=== PATIENT | female | born 1995 | race Caucasian/White ===

== ENCOUNTER 2018-08-06 19:07 | Emergency (ER) | payer OTHER ==
[2018-08-06 19:50] VITALS: BP 109/70
--- NOTE | 2018-08-06 20:16 | UC ---
Abdominal Pain Female HPI - HPI Summary HPI Summary: 23 y/o female presents to the urgent care c/o lower abdominal pain for the past the past 3 weeks. Pain has worsen in the past 2 days an localized on the pelvic area radiating to the RLQ. Pt reports she was seen at the [place] ER about 3 3 weeks of intermittent lower abd cramping. Went to [facility] ER 1 week ago; U/A and urine preg negative, told to follow up w/ PCP. Arroyo dizzy and nauseous today, also states lower abd pain worse today. No fever/chills. Tried midol and ibuprofen w/ no pain relief. - History of Current Complaint Chief Complaint: UCGI Stated Complaint: CRAMPING LOWER ABDOMINAL Time Seen by Provider: 08/06/18 20:15 Hx Obtained From: Patient Hx Last Menstrual Period: 08/04/18 ?: No Onset/Duration: Gradual Onset, Lasting Weeks - 3 weeks, Still Present, Worse Since - yesterday Timing: Constant Severity Initially: Mild Severity Currently: Moderate Pain Intensity: 8 Pain Scale Used: 0-10 Numeric Location: Other - pelvic pain Radiates: Yes Radiates to: RLQ Character: Cramping Alleviating Factor(s): OTC Analgesics - midol Associated Signs and Symptoms: Positive: Dizzy - at times, Vaginal Discharge - mild, Nausea. Negative: Fever, Vaginal Bleeding, Vomiting, Diarrhea Allergies/Adverse Reactions: Allergies Allergy/AdvReac Type Severity Reaction Status Date / Time No Known Allergies Allergy Verified 08/06/18 19:39 Home Medications: Home Medications Escitalopram Oxalate [Lexapro 10 mg] 1 tab QAM 08/06/18 [History Confirmed 08/06] PMH/Surg Hx/FS Hx/Imm Hx Previously Healthy: Yes - Pt denies PMHX - Surgical History Surgical History: None - Family History Known Family History: Positive: Cardiac Disease, Hypertension, Diabetes - Social History Occupation: Employed Full-time, Student Lives: With Family Alcohol Use: Occasionally Substance Use Type: None Smoking Status (MU): Light Every Day Tobacco Smoker Type: Cigarettes Amount Used/How Often: 1/2 PPD Review of Systems Constitutional: Negative Skin: Negative Eyes: Negative ENT: Negative Respiratory: Negative Cardiovascular: Negative Gastrointestinal: Nausea Genitourinary: Vaginal/Penile Discharge - mild, Other - pelvic pain radiating to the RLQ Motor: Negative Neurovascular: Negative Musculoskeletal: Negative Neurological: Negative Psychological: Negative Is Patient Immunocompromised?: No All Other Systems Reviewed And Are Negative: Yes Physical Exam - Summary Physical Exam Summary: Vital signs: reviewed General: well developed, well nourished female adolescent sitting in the examining table w/o any acute distress. Head: Normocephalic, no lesions. Eyes: PERRLA, EOM's full, conjunctiva clear, fundi grossly normal. Ears: EAC's clear, TM's normal. Nose: Mucosa normal, no obstruction. Throat: Clear, no exudates, no lesions. Neck: Supple, no masses, no thyromegaly, no bruits. Chest: Lungs clear, no rales, no rhonchi, no wheezes. Heart: RR, no murmurs, no rubs, no gallops. Abdomen: Soft, no tenderness, no masses, BS normal. Pelvic: External genitalia within normal limits. There is no lesions there is no masses noted. Speculum exam: The vaginal burton are within normal limits w/ normal clear vaginal discharge, no the lesions or rashes. The cervix is closed with no lesions or masses. There is no CMT's, and no adnexal masses. Sample sent to Lab for G/C and Affirm panel. Rectal: No lesions, no hemorrhoids, Back: Normal curvature, no tenderness. Extremities: FROM, no deformities, no edema, no erythema. Neuro: Physiological, no localizing findings. Skin: Normal, no rashes, no lesions noted. Triage Information Reviewed: Yes Vital Signs: Initial Vital Signs Temp 99 F 08/06/18 19:40 Pulse 74 08/06/18 19:40 Resp 16 08/06/18 19:40 BP 109/70 08/06/18 19:40 Pulse Ox 100 08/06/18 19:40 Abd Pain Female Course/Dx - Differential Dx/Diagnosis Differential Diagnosis: Appendicitis, Ovarian Cyst, Pelvic Inflammatory Disease , , Renal Colic, Urinary Tract Infection, Other - cervicitis Provider Diagnoses: 1- Acute pelvic pain. 2- Discharge - Sign-Out/Discharge Documenting (check all that apply): Patient Departure - Pt highly recommended to go to the [place] ER for further management on her pelvic pain. Pt offer ambulance transfer and she declines and stated her mother will pick her up. Pt explaine neris of not taking ER trnasfer. All imaging exams completed and their final reports reviewed: No Studies - Discharge Plan Condition: Stable Disposition: HOME-RECOMMEND TO ED Patient Education Materials: Pelvic Pain in Women (ED) Referrals: Avelina Zarco PA [Primary Care Provider] - Additional Instructions: I think you need a higher level or care for your presenting symptoms. I highly recommend you to go to the ER for further evaluation and treatment on your pelvic . The risks of not going can be , ovarian torsion or cyst, PID, appendicitis etc. I spoke to the ER attending MICHELLE Eddy. They are expecting you. - Billing Disposition and Condition Condition: STABLE Disposition: Home-Recommend to ED
== END 2018-08-06 21:18 | disposition home health service (06) ==
LOC: UCCORT 19:07
DX: R10.2 Pelvic and perineal pain (principal); F17.210 Nicotine dependence, cigarettes, uncomplicated
CPT/HCPCS: 81003; 84702; 99202; G0463

== ENCOUNTER 2018-12-26 20:38 | Emergency (ER) | payer MEDICAID, OTHER ==
--- OUTSIDE RECORDS SUMMARY | 2018-12-26 20:54 | XMS REPORT | Continuity of Care Document ---
:1995 External Reference #:[id number] Author Name Ariadne Patiño NP Address [address] [place] [id number] Care Team Providers Name Role Phone No Primary Care Physician Unavailable Payers Date Identification Numbers Payment Provider Subscriber Effective: 2018 Policy Number: [id number] [facility] [employer] [employer] Group Name: [employer] [address] PayID: [id number] [place] [address] Effective: 2018 Policy Number: [id number] Medicaid -Allen Vallejo PayID: [id number] [address] [place] [address] Effective: 2015 Policy Number: [id number] Medicaid -Allen Vallejo Expires: 2017 PayID: [id number] [address] [place] [id number] Advance Directives Description No Information Available Problems Description No Active Problems Family History Date Family Member(s) Observation Comments Father No Current Problems Father Alive Mother No Current Problems Mother Alive Social History Type Date Description Comments Sex Female Education Highest level completed, 12th grade Marital Status Legal Status: Never Tobacco Use Reviewed: Never Smoked Cigars 11/23/18 Smoking Status Reviewed: Never Smoked Cigars 11/23/18 Tobacco Use Reviewed: Never Smoked A Pipe 11/23/18 Tobacco Use Start: Unknown Never Used Smokeless Tobacco ETOH Use Occasionally consumes alcohol Recreational Drug Use Teaching provided regarding Naloxone/Narcan Training Available At [facility] Tobacco Use Start: Unknown Patient is a former states stopped smoking End: Unknown smoker aprox. 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 treatment Azithromycin 11/25 Active Tablets 500mg 2tabs take 2 tablets by Haroon mouth once WEIGHT LOSS PHYSICIAN Depo-Provera 11/23 Active Suspension 150mg/ml 1ml 1 Z30.013 intramuscular Haroon, injection WEIGHT LOSS PHYSICIAN every 12 weeks until annual exam Azo Cranberry Active Unknown / Ortho 01/19 Hx Tablets 0.18/0.21 84tab 1 by mouth Z30.011 Ariadne Tri-Cyclen 5/0.25 s every day Haroon, - mg-25 mcg WEIGHT LOSS PHYSICIAN 11/23 Depo-Provera 10/28 Hx Suspension 150mg/ml 1ml intramuscular Z30.42 In every 12 Oh, MD - weeks til 11/23 next Depo-Provera 04/06 Hx Suspension 150mg/ml 1ml intramuscular In every 12 Oh, MD - weeks til 01/19 next Depo-Provera 04/01 Hx Suspension 150mg/ml 1ml intramuscular In every 12 Oh, MD - weeks til 01/19 next Depo-Provera 04/09 Hx Suspension 150mg/ml 1ml intramuscular Z30.42 In every 12 Oh, MD - weeks til 01/19 next Zoloft 01/15 Hx Concentrate 20mg/ml In OhMD - 10/28 Oral 01/15 Hx In Contr Oh, - 07/08 Econtra Ez 01/15 Hx Tablets 1.5mg 1tabs Take 1 pill Z30.012 In po now Oh, - 07/08 Medications Administered in Office Medication Date Status Form Strength Qnty SIG Indications Ordering Provider Zithromax 12/03 Administered Tablets 500mg 2tabs two tabs A56.02 by mouth Haroon, x 1 WEIGHT LOSS PHYSICIAN Plan B 2tabs Administered Tablets 1.5mg 1tabs 1 tab by In [facility] One-Step 02/08 mouth now MD Kannan Depo-Provera 1tabs Administered Suspension 150mg/ml 1ml 1 Ariadne M 01/02 intramusc Haroon, didier WEIGHT LOSS PHYSICIAN injection every 12 weeks until annual exam Depo-Provera 1ml12 Administered Suspension 150mg/ml 1ml intramusc In [facility] didier Brunner MD 016 every 12 weeks til next annual Depo-Provera 1ml09 Administered Suspension 150mg/ml 1ml 1 Z30.42 Ariadne intramusc Haroon 016 didier WEIGHT LOSS PHYSICIAN injection every 12 weeks until annual exam J-Depo Provera 1ml02 Administered Injection Ariadne M Injection /02/17 Josemanuel Patiño NP Emergency 02/08 Administered Injection Dinah Contraceptive /2017 Joel Contraceptive 01/19 Administered Injection Ariadne M Pills /2017 Damion Patiño NP J-Depo Provera 10/28 Administered Injection Mariann Injection /2017 KIRSTEN Hurley J-Depo Provera 07/03 Administered Injection Ariadne M Injection /2016 KIRSTEN Patiño J-Depo Provera 04/01 Administered Injection Dinah Injection /2016 Joel J-Depo Provera 01/02 Administered Injection Dinah Injection /2016 Joel J-Depo Provera 10/06 Administered Injection Dinah Injection /2015 Joel J-Depo Provera 07/08 Administered Injection Ariadne M Injection /2015 KIRSTEN Patiño J-Depo Provera 04/09 Administered Injection Mariann Injection /2015 KIRSTEN Hurley Emergency 01/15 Administered Injection Buddy, Contraceptive PALAK Brandt Emergency 01/29 Administered Injection Buddy, Contraceptive PALAK Brandt Emergency 10/23 Administered Injection Dinah Contraceptive /2014 Joel Immunizations Description No Information Available Vital Signs Date Vital Result Comment 12/03/2018 1:17pm BP Systolic 102 mmHg BP Diastolic 86 mmHg 11/23/2018 9:29am BP Systolic 97 mmHg BP Diastolic 62 mmHg Height 65 inches 5'5" Weight 122.00 lb BMI (Body Mass Index) 20.3 kg/m2 02/08/2018 4:16pm BP Systolic 118 mmHg BP Diastolic 70 mmHg 01/19/2018 9:51am BP Systolic 102 mmHg BP Diastolic 56 mmHg Height 65 inches 5'5" Weight 123.00 lb BMI (Body Mass Index) 20.5 kg/m2 10/28/2017 11:09am BP Systolic 117 mmHg BP Diastolic 70 mmHg Height 65 inches 5'5" Weight 118.00 lb BMI (Body Mass Index) 19.6 kg/m2 07/03/2017 2:00pm BP Systolic 110 mmHg BP Diastolic 70 mmHg Height 65 inches 5'5" Weight 115.00 lb BMI (Body Mass Index) 19.1 kg/m2 04/01/2017 1:39pm BP Systolic 114 mmHg BP Diastolic 68 mmHg Weight 120.00 lb 01/02/2017 10:31am BP Systolic 118 mmHg BP Diastolic 74 mmHg Weight 118.00 lb 10/06/2016 1:22pm BP Systolic 114 mmHg BP Diastolic 70 mmHg Weight 125.00 lb 07/08/2016 3:10pm BP Systolic 104 mmHg BP Diastolic 64 mmHg Weight 125.00 lb 04/09/2016 8:37am BP Systolic 90 mmHg BP Diastolic 64 mmHg Height 65 inches 5'5" Weight 118.00 lb BMI (Body Mass Index) 19.6 kg/m2 Last Menstrual Period [id number] Results Test Date Facility Test Result H/L Range Note Laboratory test [facility] Test negative finding 9 Urine..... Chlamydia/N [facility] CT,Rna,Tma,Uro DETECTED Abnormal Not Detected 1 Gonorroeae Rna 9 genital Tma Urogenit GC Rna,Tma,Urogen NOT DETECTED Not Detected 2 Laboratory test finding 11/23/2018 [facility] Test Urine..... negative Laboratory test finding 01/19/2018 [facility] HIV Rapid... non-reactive Hep C Rapid Test non-reactive Chlam 01/19/2018 [facility] C.Trachomatis NOT DETECTED Not Detected 3 Trach/Neisseria Rna,Tma Gonorroeae Rna Tma N.Gonorrhoeae Rna,Tma NOT DETECTED Not Detected 4 Laboratory test finding 10/28/2017 [facility] HGB Blood.... 13.2 Hep C Rapid Test non reactive HIV Rapid... non reactive Urinalysis DIP Only.... 10/28/2017 [facility] Urine Leukocyte Esterase QN + Urine Nitrite QN N Urine Blood N Urine PH 6.0 Urine Protein Random N Urine Ketone Random N Urine Glucose QN Random N Laboratory test 10/28/2017 [facility] Test neg finding Urine..... Laboratory test 07/03/2017 [facility] C.Trachomatis NOT DETECTED Not Detected 5 finding Rna,Tma W/RFX N.Gonorrhoeae Rna,Tma Urinalysis DIP 07/03/2017 [facility] Urine Leukocyte N Only.... Esterase QN Urine Nitrite QN N Urine Blood tr Urine PH 5.0 Urine Protein Random N Urine Ketone Random N Urine Glucose QN Random N Laboratory test 07/03/2017 [facility] Test neg finding Urine..... Chlam 07/08/2016 [facility] C.Trachomatis NOT DETECTED Not Detected 6 Trach/Neisseria Rna,Tma Gonorroeae Rna Tma N.Gonorrhoeae Rna,Tma NOT DETECTED Not Detected 7 Urinalysis DIP Only.... 07/08/2016 [facility] Urine Protein Random neg Urine Glucose QN Random neg Laboratory test 07/08/2016 [facility] neg [facility] C.Trachomatis NOT DETECTED Not Detected 8 Trach/Neisseria Rna,Tma Gonorroeae Rna Tma N.Gonorrhoeae Rna,Tma NOT DETECTED Not Detected 9 [facility] Annual Lab Set 04/09/2016 [facility] HGB Blood.... 14.3 Urinalysis DIP Only.... 04/09/2016 [facility] Urine Protein Random N Urine Glucose QN Random N Laboratory test finding 04/09/2016 [facility] HIV Rapid... non reactive [address] or NG Nucleic Acid Amplification Test (NAAT) result should be considered presumptive evidence of infection. The result should be evaluated along with physical examination and other diagnostic findings. This test was performed using the APTIMA COMBO2(R) Assay (GEN-PROBE(R). The analytical performance characteristics of this assay, when used to test SurePath(R) specimens have been determined by [facility]. 2 This test was performed using the APTIMA COMBO2(R) Assay (GEN-PROBE(R). The analytical performance characteristics of this assay, when used to test SurePath(R) specimens have been determined by [facility]. 3 This test was performed using the APTIMA COMBO2(R) Assay (GEN-PROBE(R). The analytical performance characteristics of this assay, when used to test SurePath(R) specimens have been determined by [facility]. 4 This test was performed using the APTIMA COMBO2(R) Assay (GEN-PROBE(R). The analytical performance characteristics of this assay, when used to test SurePath(R) specimens have been determined by [facility]. 5 This test was performed using the APTIMA COMBO2(R) Assay (GEN-PROBE(R). The analytical performance characteristics of this assay, when used to test SurePath(R) specimens have been determined by [facility]. 6 This test was performed using the APTIMA COMBO2(R) Assay (GEN-PROBE(R). The analytical performance characteristics of this assay, when used to test SurePath(R) specimens have been determined by [facility]. 7 This test was performed using the APTIMA COMBO2(R) Assay (GEN-PROBE(R). The analytical performance characteristics of this assay, when used to test SurePath(R) specimens have been determined by [facility]. 8 This test was performed using the APTIMA COMBO2(R) Assay (GEN-PROBE(R). The analytical performance characteristics of this assay, when used to test SurePath(R) specimens have been determined by [facility]. 9 This test was performed using the APTIMA COMBO2(R) Assay (GEN-PROBE(R). The analytical performance characteristics of this assay, when used to test SurePath(R) specimens have been determined by [facility]. Procedures Date Code Description Status 11/23/2018 92964 Therapeutic, Prophylactic Or Diagnostic Injection Subq/Im Completed 10/28/2017 11316 Therapeutic, Prophylactic Or Diagnostic Injection Subq/Im Completed 07/03/2017 36641 Therapeutic, Prophylactic Or Diagnostic Injection Subq/Im Completed 04/01/2017 09968 Therapeutic, Prophylactic Or Diagnostic Injection Subq/Im Completed 01/02/2017 30651 Therapeutic, Prophylactic Or Diagnostic Injection Subq/Im Completed 10/06/2016 39369 Therapeutic, Prophylactic Or Diagnostic Injection Subq/Im Completed 07/08/2016 27164 Therapeutic, Prophylactic Or Diagnostic Injection Subq/Im Completed 04/09/2016 96934 Therapeutic, Prophylactic Or Diagnostic Injection Subq/Im Completed Encounters Type Date Location Provider Dx Diagnosis Office Visit 01/19/2018 REGGIE Patiño NP Z30.011 Encounter for initial 9:30a prescription of contraceptive pills Z11.3 Encntr screen for infections w sexl mode of transmiss Z13.9 Encounter for screening, unspecified Z11.4 Encounter for screening for human immunodeficiency virus Z11.59 Encounter for screening for other viral diseases Z30.40 Encounter for surveillance of contraceptives, unspecified Plan of Treatment 12/03/2018 - Ariadne Patiño, NPA56.02 Chlamydial vulvovaginitisNew Medication: Zithromax 500 mg - two tabs by mouth x 1Zithromax 500 mg - two tabs by mouth x 1 for expedited partner treatmentComments:Patient has tested positive for Chlamydia. Treated today with Zmax 1 gm po and gave Zmax 1 gm to go for EPT. Reviewed use of, side effects and precautions of medication and EPT with patient who states understanding. Instructed patient to abstain from ic x 1 week. Encouraged patient on consistent condom use.Follow up:2 weeks UPT, 3 months method yarplC84.42 Encounter for surveillance of injectable contraceptiveComments:UPT negative today. Patient did not use BUBC x 7 days. Advised her to take a home UPT in 2 weeks or RTO in 2 weeks for UPT. She states understanding.Z32.02 Encounter for test, result negative
[2018-12-26 21:19] VITALS: BP 123/72
[2018-12-26] MEDS ORDERED: HYDROcodone/ACETAMIN 5-325 MG* 1 TAB PO ONE (21:40)
--- NOTE | 2018-12-26 21:45 | UC ---
Dental HPI - HPI Summary HPI Summary: DENTAL COMPLAINT. LEFT UPPER AND LOWER WISDOM TEETH. UPPER TOOTH IS BROKEN, BOTTOM TOOTH IS IMPACTED. HAS AN APPOINTMENT THIS THURSDAY TO HAVE A CONSULT WITH HER DENTIST TO HAVE TEETH REMOVED. PT WAS SEEN AND TREATED WITH AN ANTIBIOTIC A MONTH AGO AT [facility]. PAIN HAS BEEN WORSE RECENTLY, C/O NAUSEA, AND HEADACHES - History of Current Complaint Chief Complaint: UCDentalProblem Stated Complaint: DENTAL COMPLAINT Time Seen by Provider: 12/26/18 21:11 Hx Obtained From: Patient Hx Last Menstrual Period: 11/22/18 ?: No Onset/Duration: Sudden Onset, Lasting Days Severity: Severe Pain Intensity: 7 Aggravating Factor(s): Chewing Alleviating Factor(s): Nothing Related History: Previous Dental Care on Same Tooth - Allergies/Home Medications Allergies/Adverse Reactions: Allergies Allergy/AdvReac Type Severity Reaction Status Date / Time No Known Allergies Allergy Verified 12/26/18 21:10 PMH/Surg Hx/FS Hx/Imm Hx Previously Healthy: Yes - Surgical History Surgical History: None - Family History Known Family History: Negative: Cardiac Disease, Hypertension, Diabetes - Social History Alcohol Use: Occasionally Substance Use Type: Marijuana Substance Use Comment - Amount & Last Used: DAILY Smoking Status (MU): Former Smoker Type: Cigarettes Amount Used/How Often: 3 per day When Did the Patient Quit Smoking/Using Tobacco: SEP 2018 - Immunization History Most Recent Influenza Vaccination: no Review of Systems All Other Systems Reviewed And Are Negative: Yes Constitutional: Positive: Negative Skin: Positive: Negative Eyes: Positive: Negative ENT: Positive: Dental Pain Respiratory: Positive: Negative Cardiovascular: Positive: Negative Gastrointestinal: Positive: Negative Genitourinary: Positive: Negative Motor: Positive: Negative Neurovascular: Positive: Negative Musculoskeletal: Positive: Negative Neurological: Positive: Negative Psychological: Positive: Negative Is Patient Immunocompromised?: No Physical Exam Triage Information Reviewed: Yes Appearance: Well-Appearing, Well-Nourished, Pain Distress Vital Signs: Initial Vital Signs Temp 99 F 12/26/18 21:11 Pulse 60 12/26/18 21:11 Resp 16 12/26/18 21:11 BP 123/72 12/26/18 21:11 Pulse Ox 98 12/26/18 21:11 Vital Signs Reviewed: Yes Eye Exam: Normal ENT Exam: Normal Dental: Positive: Gross Decay/Caries @, Dental Fracture @, Other: - no redness or swelling, no sign of infection Neck exam: Normal Respiratory Exam: Normal Respiratory: Positive: Chest non-tender, Lungs clear, Normal breath sounds Cardiovascular Exam: Normal Cardiovascular: Positive: RRR, No Murmur, Pulses Normal Abdominal Exam: Normal Bowel Sounds: Positive: Present Musculoskeletal Exam: Normal Neurological Exam: Normal Psychological Exam: Normal Skin Exam: Normal Dental Complaint Course/Dx - Course Course Of Treatment: hx obtained, exam performed ,meds reviewed, treated for dental pain - Differential Dx/Diagnosis Differential Diagnosis/Dx: Dental Abscess, Dental Caries, Fractured Tooth Provider Diagnosis: Fracture, tooth Discharge - Sign-Out/Discharge Documenting (check all that apply): Patient Departure All imaging exams completed and their final reports reviewed: No Studies - Discharge Plan Condition: Stable Disposition: HOME Prescriptions: HYDROcodone/ACETAMIN 5-325 MG* [[place] 5-325 TAB*] 1 tab PO Q8H PRN #10 tab MDD 3 tab PRN Reason: Pain Patient Education Materials: Toothache (ED) Referrals: Avelina Zarco PA [Primary Care Provider] - Additional Instructions: 1. take the medication as prescribed. 2. Follow up with the dental surgeon on thursday - Billing Disposition and Condition Condition: STABLE Disposition: Home - Attestation Statements Provider Attestation: I was available for consult. This patient was seen by the BUD. The patient was not presented to , seen by or examined by nd -Sierra Luu MD
== END 2018-12-26 21:59 | disposition home or self-care (01) ==
LOC: UCCORT 20:38
DX: S02.5XXA Fracture of tooth (traumatic), initial encounter for closed fracture (principal); Z87.891 Personal history of nicotine dependence; R11.0 Nausea; R51 Headache; X58.XXXA Exposure to other specified factors, initial encounter; Y92.9 Unspecified place or not applicable
CPT/HCPCS: 99213; G0463

== ENCOUNTER 2019-01-12 21:23 | Emergency (ER) | payer OTHER ==
[2019-01-12 21:42] VITALS: BP 112/79
== END 2019-01-12 22:44 | disposition left against medical advice (07) ==
LOC: ED 21:23
DX: K08.89 Other specified disorders of teeth and supporting structures (principal); Z53.21 Procedure and treatment not carried out due to patient leaving prior to being seen by health care provider

== ENCOUNTER 2019-11-25 09:30 | Emergency (ER) | payer SELFPAY ==
[2019-11-25 10:42] VITALS: BP 106/68
[2019-11-25 11:09] LABS: Influenza A Molecular Negative (Negative); Influenza B Molecular Negative (Negative)
--- NOTE | 2019-11-25 11:12 | UC ---
UC General HPI - HPI Summary HPI Summary: Pt presents with c/o sudden onset of nausea and vomiting and ST this morning. Pt is concerned for - History of Current Complaint Chief Complaint: UCGeneralIllness Stated Complaint: VOMITING SORE THROAT Time Seen by Provider: 11/25/19 10:38 Hx Obtained From: Patient Hx Last Menstrual Period: 11/11/18 Onset/Duration: Sudden Onset, Lasting Days Onset Severity: Mild Current Severity: None Pain Intensity: 4 - Allergy/Home Medications Allergies/Adverse Reactions: Allergies Allergy/AdvReac Type Severity Reaction Status Date / Time No Known Allergies Allergy Verified 11/25/19 10:34 PMH/Surg Hx/FS Hx/Imm Hx Previously Healthy: Yes - Surgical History Surgical History: None - Family History Known Family History: Negative: Cardiac Disease, Hypertension, Diabetes - Social History Occupation: Employed Full-time Lives: With Family Alcohol Use: Occasionally Substance Use Type: Marijuana Substance Use Comment - Amount & Last Used: Daily Smoking Status (MU): Current Some Day Smoker Type: eCigarettes Amount Used/How Often: Kina Length of Time of Smoking/Using Tobacco: <1/4 PPD x 2 Years (Quit in 2018) Have You Smoked in the Last Year: No When Did the Patient Quit Smoking/Using Tobacco: SEP 2018 - Immunization History Most Recent Influenza Vaccination: no Vaccination Up to Date: Yes Review of Systems All Other Systems Reviewed And Are Negative: Yes Constitutional: Positive: Chills Skin: Positive: Negative Eyes: Positive: Negative ENT: Positive: Sore Throat Respiratory: Positive: Negative Cardiovascular: Positive: Negative Gastrointestinal: Positive: Vomiting, Nausea Genitourinary: Positive: Negative Motor: Positive: Negative Neurovascular: Positive: Negative Musculoskeletal: Positive: Negative Neurological: Positive: Negative Psychological: Positive: Negative Is Patient Immunocompromised?: No Physical Exam Triage Information Reviewed: Yes Appearance: Well-Appearing Vital Signs: Initial Vital Signs Temp 97.7 F 11/25/19 10:35 Pulse 58 11/25/19 10:35 Resp 16 11/25/19 10:35 BP 106/68 11/25/19 10:35 Pulse Ox 100 11/25/19 10:35 Vital Signs Reviewed: Yes Eye Exam: Normal ENT Exam: Normal Dental Exam: Normal Neck exam: Normal Respiratory Exam: Normal Cardiovascular Exam: Normal Abdominal Exam: Normal Musculoskeletal Exam: Normal Neurological Exam: Normal Psychological Exam: Normal Skin Exam: Normal Course/Dx - Differential Dx - Multi-Symptom Differential Diagnoses: Urinary Tract Infection, Other - , flu, ST - Diagnoses Provider Diagnosis: Nausea and vomiting in adult Discharge ED - Sign-Out/Discharge Documenting (check all that apply): Patient Departure All imaging exams completed and their final reports reviewed: No Studies - Discharge Plan Condition: Stable Disposition: HOME Patient Education Materials: Viral Syndrome (ED) Forms: *Work Release Referrals: Mariella Escamilla NP [Primary Care Provider] - If Needed - Billing Disposition and Condition Condition: STABLE Disposition: Home
== END 2019-11-25 11:23 | disposition home or self-care (01) ==
LOC: UCCORT 09:30
DX: R11.2 Nausea with vomiting, unspecified (principal); J02.9 Acute pharyngitis, unspecified; F17.290 Nicotine dependence, other tobacco product, uncomplicated
CPT/HCPCS: 84702; 87651; 99211; G0463